=== PATIENT | male | born 1985 | race Caucasian/White ===

== ENCOUNTER 2021-07-11 00:37 | Inpatient (IN) | payer OTHER ==
[~2021-07-11] VITALS: Ht 172.7 cm; Wt 83.6 kg
[2021-07-11 02:02] LABS: BASO % 0.9 % (0.0-1.0); EOS % 0.3 % (0.0-3.0); HEMATOCRIT 43.6 % (42.0-52.0); HEMOGLOBIN 15.2 g/dl (13.5-17.5); LYMPH # 1.9 10^3/uL (1.5-5.0); LYMPH % 54.8 % (24.0-44.0); MEAN CORPUSCULAR HEMOGLOBIN 34.2 pg (27.0-33.0); MEAN CORPUSCULAR HGB CONC 34.9 g/dl (32.0-36.5); MONO # 0.6 10^3/uL (0.0-0.8); MONO % 18.3 % (2.0-8.0); NEUTROPHILS % 25.4 % (36.0-66.0); PLATELET COUNT, AUTOMATED 229 10^3/uL (150-450); RED BLOOD COUNT 4.45 10^6/uL (4.30-6.10); WHITE BLOOD COUNT 3.5 10^3/uL (4.0-10.0)
[2021-07-11 02:24] LABS: AMPHETAMINES LEVEL URINE NEGATIVE (NEGATIVE); BARBITURATES URINE NEGATIVE (NEGATIVE); BENZODIAZEPINES URINE NEGATIVE (NEGATIVE); CANNABINOIDS URINE NEGATIVE (NEGATIVE); COCAINE METABOLITE URINE NEGATIVE (NEGATIVE); METHADONE URINE NEGATIVE (NEGATIVE); OPIATES URINE NEGATIVE (NEGATIVE); PHENCYCLIDINE URINE NEGATIVE (NEGATIVE)
[2021-07-11 02:25] LABS: NEUTROPHILS # 0.9 10^3/uL (1.5-8.5)
[2021-07-11 02:38] LABS: ACETAMINOPHEN LEVEL < 2.0 UG/ML (10.0-30.0); ALBUMIN 4.5 GM/DL (3.2-5.2); ALT/SGPT 79 U/L (12-78); BILIRUBIN,DIRECT 0.1 MG/DL (0.0-0.2); BILIRUBIN,TOTAL 0.2 MG/DL (0.2-1.0); BLOOD UREA NITROGEN 7 MG/DL (7-18); CALCIUM LEVEL 9.3 MG/DL (8.5-10.1); CARBON DIOXIDE LEVEL 28 MEQ/L (21-32); CHLORIDE LEVEL 104 MEQ/L (98-107); CREATININE FOR GFR 0.82 MG/DL (0.70-1.30); ETHYL ALCOHOL (ETHANOL) 0.404 % (0.000-0.010); GLOMERULAR FILTRATION RATE > 60.0 (>60); GLUCOSE, FASTING 97 MG/DL (70-100); POTASSIUM SERUM 3.2 MEQ/L (3.5-5.1); SALICYLATE LEVEL < 1.7 MG/DL (5.0-30.0); SODIUM LEVEL 143 MEQ/L (136-145); TOTAL PROTEIN 8.4 GM/DL (6.4-8.2)
[2021-07-11] MEDS: THIAMINE 100 MG TAB PO SCH ×2 (03:00→20:57)
[2021-07-11] MEDS: MULTIVITAMINS/MINERALS THERAP 1 TAB PO SCH (09:27)
[2021-07-11] MEDS: FOLIC ACID 1 MG TAB PO SCH (09:27)
[2021-07-11] MEDS ORDERED: ONDANSETRON 4 MG ORAL DISINTEGRATING TAB PO ONE (13:30)
[2021-07-11] MEDS: LORazepam 2 MG TAB PO PRN ×3 (13:31→21:11)
[2021-07-12] MEDS: LORazepam 2 MG TAB PO PRN ×2 (02:29→08:28)
[2021-07-12] MEDS ORDERED: HOME MED LIST COMPLETE! XX SCH (06:55)
[2021-07-12] MEDS: FOLIC ACID 1 MG TAB PO SCH (08:28)
[2021-07-12] MEDS: THIAMINE 100 MG TAB PO SCH ×2 (08:28→22:02)
[2021-07-12] MEDS: MULTIVITAMINS/MINERALS THERAP 1 TAB PO SCH (08:28)
[2021-07-12] MEDS ORDERED: THIAMINE 100 MG TAB PO SCH ×2 (09:00→21:00)
[2021-07-12] MEDS ORDERED: LOSARTAN 50MG TABLET PO ONE (12:55)
[2021-07-12] MEDS ORDERED: MOM 30ML SUSPENSION UDC PO PRN ×2 (13:50→15:30)
[2021-07-12] MEDS ORDERED: LORazepam 2 MG TAB PO PRN ×2 (13:50→15:30)
[2021-07-12] MEDS ORDERED: traZODone 50 MG TAB PO PRN (13:50)
[2021-07-12] MEDS ORDERED: MAALOX 30 ML SUSP *UDC PO PRN ×2 (13:50→15:30)
[2021-07-12] MEDS: OXAZEPAM 10 MG CAP PO SCH ×2 (14:00→22:03)
[2021-07-12] MEDS ORDERED: POTASSIUM CHLORIDE 10MEQ SR TABLET PO ONE (15:30)
[2021-07-12] MEDS ORDERED: ACETAMINOPHEN TAB 650MG DOSE (2X325MG) PO PRN (15:30)
[2021-07-12] MEDS: amLODIPine 5 MG TAB PO SCH (16:00)
[2021-07-12] MEDS: DOCUSATE SODIUM 100MG CAPSULE PO SCH (22:01)
[2021-07-13] VITALS (7 sets, daily range): BP systolic 90–158; BP diastolic 50–110
[2021-07-13] MEDS ORDERED: diphenhydrAMINE 25MG CAP PO PRN (01:30)
[2021-07-13] MEDS ORDERED: RAMELTEON 8 MG TAB (ROZEREM) PO PRN (01:30)
[2021-07-13] MEDS: OXAZEPAM 10 MG CAP PO SCH (05:31)
[2021-07-13 05:39] LABS: BASO % 0.4 % (0.0-1.0); EOS # 0.1 10^3/uL (0.0-0.5); HEMATOCRIT 45.5 % (42.0-52.0); HEMOGLOBIN 16.1 g/dl (13.5-17.5); LYMPH # 1.1 10^3/uL (1.5-5.0); LYMPH % 21.6 % (24.0-44.0); MEAN CORPUSCULAR HEMOGLOBIN 34.3 pg (27.0-33.0); MEAN CORPUSCULAR HGB CONC 35.4 g/dl (32.0-36.5); MONO # 0.4 10^3/uL (0.0-0.8); MONO % 7.3 % (2.0-8.0); NEUTROPHILS # 3.4 10^3/uL (1.5-8.5); NEUTROPHILS % 69.5 % (36.0-66.0); PLATELET COUNT, AUTOMATED 220 10^3/uL (150-450); RED BLOOD COUNT 4.69 10^6/uL (4.30-6.10); WHITE BLOOD COUNT 4.9 10^3/uL (4.0-10.0)
[2021-07-13 06:13] LABS: ALBUMIN 4.2 GM/DL (3.2-5.2); ALT/SGPT 92 U/L (12-78); BILIRUBIN,DIRECT 0.2 MG/DL (0.0-0.2); BILIRUBIN,TOTAL 0.6 MG/DL (0.2-1.0); BLOOD UREA NITROGEN 7 MG/DL (7-18); CALCIUM LEVEL 9.6 MG/DL (8.5-10.1); CARBON DIOXIDE LEVEL 28 MEQ/L (21-32); CHLORIDE LEVEL 99 MEQ/L (98-107); CREATININE FOR GFR 0.77 MG/DL (0.70-1.30); GLOMERULAR FILTRATION RATE > 60.0 (>60); GLUCOSE, FASTING 118 MG/DL (70-100); MAGNESIUM LEVEL 1.6 MG/DL (1.8-2.4); POTASSIUM SERUM 3.1 MEQ/L (3.5-5.1); SODIUM LEVEL 135 MEQ/L (136-145); TOTAL PROTEIN 8.5 GM/DL (6.4-8.2)
[2021-07-13] MEDS ORDERED: POTASSIUM CHLORIDE 10MEQ SR TABLET PO ONE (07:00)
[2021-07-13] MEDS ORDERED: MAG SULF 1GM/100ML (MAG RUN) 1 GM in IV 1 EA IV SCH (08:00)
[2021-07-13] MEDS ORDERED: ENOXAPARIN 40MG/0.4ML SYRINGE (J1650 PER 10MG) SC SCH (09:00)
[2021-07-13] MEDS ORDERED: FOLIC ACID 1 MG TAB PO SCH ×2 (09:00)
[2021-07-13] MEDS ORDERED: MULTIVITAMINS/MINERALS THERAP 1 TAB PO SCH ×2 (09:00)
[2021-07-13] MEDS ORDERED: hydroCHLOROthiazide 12.5 MG CAPSULE PO SCH (09:00)
[2021-07-13] MEDS: DOCUSATE SODIUM 100MG CAPSULE PO SCH (09:00)
[2021-07-13] MEDS ORDERED: MAGNESIUM OXIDE 400MG TAB (MAG-OX) PO SCH (09:00)
[2021-07-13] MEDS: THIAMINE 100 MG TAB PO SCH (09:39)
[2021-07-13] MEDS: amLODIPine 5 MG TAB PO SCH (09:39)
[2021-07-13] MEDS ORDERED: LORazepam 2 MG TAB PO PRN (11:55)
[2021-07-13] MEDS ORDERED: MAALOX 30 ML SUSP *UDC PO PRN (11:55)
[2021-07-13] MEDS ORDERED: traZODone 50 MG TAB PO PRN (11:55)
[2021-07-13] MEDS ORDERED: MOM 30ML SUSPENSION UDC PO PRN (11:55)
[2021-07-13] MEDS ORDERED: VITMTA PO (13:48)
[2021-07-13] MEDS ORDERED: FOLI1TAB11 PO (13:48)
[2021-07-13] MEDS ORDERED: AMLO1TAB24 PO (13:48)
[2021-07-13] MEDS ORDERED: THIA100TA PO (13:48)
[2021-07-13] MEDS ORDERED: HYDR12CA PO (13:48)
[2021-07-13] MEDS ORDERED: MAGN400T2 PO (13:48)
[2021-07-13] MEDS ORDERED: THIAMINE 100 MG TAB PO SCH (21:00)
[2021-07-14] MEDS ORDERED: NICOTINE 14 MG/24 HR TRANSDERMAL TD SCH (09:00)
[2021-07-14] MEDS ORDERED: FOLIC ACID 1 MG TAB PO SCH (09:00)
[2021-07-14] MEDS ORDERED: MULTIVITAMINS/MINERALS THERAP 1 TAB PO SCH (09:00)
[2021-07-14 11:15] LABS: HEPATITIS C VIRUS ABY INDEX 0.6 INDEX (<0.8)
[2021-07-14 11:16] LABS: HEPATITIS B CORE ANTIBODY IGM NEGATIVE (NEGATIVE)
[2021-07-14 13:57] LABS: HEPATITIS B SURFACE ANTIGEN NEGATIVE (NEGATIVE)
== END 2021-07-13 15:00 | DRG 898 ==
LOC: M ED 00:37 → M ED INP 07-12 13:46 → M PCU 07-13 00:58
PROVIDERS: ADMIT Psychiatry & Neurology Psychiatry; ATTEND Internal Medicine
DX: F10.239 Alcohol dependence with withdrawal, unspecified (principal); R45.851 Suicidal ideations; F17.200 Nicotine dependence, unspecified, uncomplicated; I16.0 Hypertensive urgency; R74.01 Elevation of levels of liver transaminase levels; F43.10 Post-traumatic stress disorder, unspecified; E87.6 Hypokalemia; I10 Essential (primary) hypertension; J06.9 Acute upper respiratory infection, unspecified; B97.89 Other viral agents as the cause of diseases classified elsewhere; Z79.899 Other long term (current) drug therapy; Z91.82 Personal history of military deployment

== ENCOUNTER 2021-07-13 13:38 | Inpatient (IN) | payer OTHER ==
[~2021-07-13] VITALS: Ht 185.4 cm; Wt 83.6 kg
[2021-07-13] MEDS ORDERED: VITMTA PO (13:48)
[2021-07-13] MEDS ORDERED: AMLO1TAB24 PO (13:48)
[2021-07-13] MEDS ORDERED: MAGN400T2 PO (13:48)
[2021-07-13] MEDS ORDERED: FOLI1TAB11 PO (13:48)
[2021-07-13] MEDS ORDERED: HYDR12CA PO (13:48)
[2021-07-13] MEDS ORDERED: THIA100TA PO (13:48)
[2021-07-17 06:09] VITALS: BP 146/87
[2021-07-17 08:04] VITALS: BP 146/87
[2021-07-17] MEDS ORDERED: PRAZ2CAP PO (10:09)
[2021-07-17] MEDS ORDERED: AMLO1TAB24 PO (10:09)
[2021-07-17] MEDS ORDERED: HYDR50TA70 PO (10:09)
[2021-07-17] MEDS ORDERED: HYDR-3490 PO (10:09)
[2021-07-17] MEDS ORDERED: SERT50TA29 PO (10:10)
[2021-07-17] MEDS ORDERED: TRAZ-252 PO (10:10)
== END 2021-07-17 14:10 | disposition home or self-care (01) | DRG 882 ==
LOC: M PSY 14:56
PROVIDERS: ADMIT Student in an Organized Health Care Education/Training Program; ATTEND Psychiatry & Neurology Psychiatry
DX: F43.10 Post-traumatic stress disorder, unspecified (principal); R45.851 Suicidal ideations; F10.20 Alcohol dependence, uncomplicated; Z91.82 Personal history of military deployment; F17.200 Nicotine dependence, unspecified, uncomplicated; Z79.899 Other long term (current) drug therapy; Z88.5 Allergy status to narcotic agent; Z88.6 Allergy status to analgesic agent; I10 Essential (primary) hypertension; R74.01 Elevation of levels of liver transaminase levels; E83.42 Hypomagnesemia; E87.6 Hypokalemia; R55 Syncope and collapse